=== PATIENT | male | born 1990 | race Caucasian/White ===

== ENCOUNTER 2017-10-29 20:56 | Emergency (ER) | payer MEDICARE, OTHER ==
[~2017-10-29] VITALS: Ht 157.5 cm; Wt 60.0 kg
[2017-10-29 21:20] VITALS: BP 136/69; PULSE 104; RESP 16; TEMP 98.1; O2SAT 97
--- NOTE | 2017-10-29 21:21 | PD ---
HPI Chief Complaint: BA Time Seen by Provider: 21:08 Travel History International Travel<30 days: No Contact w/Intl Traveler<30days: No Traveled to known affect area: No History of Present Illness HPI This is a 26-year-old male who presents under Maher act initially by the [employer]. According to his paperwork, "Jarrett has been a challenge and has various mental illness according to staff at his skilled nursing. Jarrett is not able to communicate with others so it is difficult to determine what he is feeling/ thinking. However and he has been acting out today and broke down his bedroom door and attempting to bite and she had a unknown reasons. Staff advised that this is abnormal for any and believe there is something affecting his mental stability and he needs to be evaluated for means of stabilization. That will be held determined that there is a substantial likelihood without care treatment of her annual cause harm to himself or others." History is limited to what is available on the [employer] act form. Symptom onset unknown. Symptoms are moderate, seem to be aggravated by his underlying mental or physical diagnosis with no obvious relieving factors. No other obvious associated signs or symptoms as the patient is unable to provide history. [facility] Social History Tobacco Use: No (Unable to obtain) Allergies-Medications (Allergen,Severity, Reaction): Coded Allergies: No Allergy Information Available (Unverified , 10/29/17) Reported Meds & Prescriptions Reported Meds & Active Scripts Active Active Prescriptions or Reported Medications Unobtainable Review of Systems ROS Limitations: Speech Impaired, Poor Historian Except as stated in HPI: all other systems reviewed are Neg Physical Exam Exam Limitations: Poor Historian Narrative GENERAL: This is a young male who is in no acute distress. He is smiling during examination. SKIN: Warm and dry. HEAD: Atraumatic. Normocephalic. EYES: Pupils equal and round. No scleral icterus. No injection or drainage. ENT: No nasal bleeding or discharge. Mucous membranes pink and moist. NECK: Trachea midline. No JVD. CARDIOVASCULAR: Regular rate and rhythm. No murmur appreciated. RESPIRATORY: No accessory muscle use. Clear to auscultation. Breath sounds equal bilaterally. GASTROINTESTINAL: Abdomen soft, non-tender, nondistended. Hepatic and splenic margins not palpable. MUSCULOSKELETAL: No obvious deformities. No clubbing. No cyanosis. No edema. NEUROLOGICAL: Awake and alert. No obvious cranial nerve deficits. Motor grossly within normal limits. Data Data Last Documented VS Vital Signs Date Time Temp Pulse Resp B/P (MAP) Pulse Ox O2 Delivery O2 Flow Rate FiO2 10/29/17 21:20 98.1 104 16 136/69 (91) 97 Orders Orders Complete Blood Count With Diff (10/29/17 21:08) Comprehensive Metabolic Panel (10/29/17 21:08) Thyroid Stimulating Hormone (10/29/17 21:08) Psych Screen (10/29/17 21:08) Drug Screen, Random Urine (10/29/17 21:08) Labs Laboratory Tests Test 10/29/17 21:50 White Blood Count 7.4 TH/MM3 Red Blood Count 4.32 MIL/MM3 Hemoglobin 13.1 GM/DL Hematocrit 39.3 % Mean Corpuscular Volume 91.2 FL Mean Corpuscular Hemoglobin 30.5 PG Mean Corpuscular Hemoglobin Concent 33.4 % Red Cell Distribution Width 13.5 % Platelet Count 123 TH/MM3 Mean Platelet Volume 8.0 FL Neutrophils (%) (Auto) 62.7 % Lymphocytes (%) (Auto) 19.0 % Monocytes (%) (Auto) 16.8 % Eosinophils (%) (Auto) 1.2 % Basophils (%) (Auto) 0.3 % Neutrophils # (Auto) 4.6 TH/MM3 Lymphocytes # (Auto) 1.4 TH/MM3 Monocytes # (Auto) 1.2 TH/MM3 Eosinophils # (Auto) 0.1 TH/MM3 Basophils # (Auto) 0.0 TH/MM3 CBC Comment DIFF FINAL Differential Comment Blood Urea Nitrogen 17 MG/DL Creatinine 0.84 MG/DL Random Glucose 105 MG/DL Total Protein 6.7 GM/DL Albumin 3.3 GM/DL Calcium Level 8.8 MG/DL Alkaline Phosphatase 65 U/L Aspartate Amino Transf (AST/SGOT) 32 U/L Alanine Aminotransferase (ALT/SGPT) 29 U/L Total Bilirubin 0.2 MG/DL Sodium Level 144 MEQ/L Potassium Level 3.4 MEQ/L Chloride Level 108 MEQ/L Carbon Dioxide Level 28.2 MEQ/L Anion Gap 8 MEQ/L Estimat Glomerular Filtration Rate 110 ML/MIN Thyroid Stimulating Hormone 3rd Gen 6.120 uIU/ML MDM Medical Decision Making Medical Screen Exam Complete: Yes Emergency Medical Condition: Yes Medical Record Reviewed: Yes Differential Diagnosis Intermittent explosive disorder, autism, developmental delay, acute psychosis, substance-induced mood disorder, schizophrenia, schizoaffective disorder Narrative Course Mental health screening discussed with the patient. Psychiatric screen ordered. Diagnosis Primary Impression: Medical clearance for psychiatric admission Scripts Unable to Obtain Active Prescriptions or Reported Meds Walker Rodriguez Oct 29, 2017 21:21
[2017-10-29 22:14] LABS: AUTOMATED NEUTROPHIL # 4.6 TH/MM3 (1.8-7.7); BASOPHIL % 0.3 % (0.0-2.0); EOSINOPHIL # 0.1 TH/MM3 (0-0.4); EOSINOPHIL % 1.2 % (0.0-4.0); HEMATOCRIT 39.3 % (39.0-51.0); HEMOGLOBIN 13.1 GM/DL (13.0-17.0); LYMPHOCYTE # 1.4 TH/MM3 (1.0-4.8); MEAN CELL VOLUME 91.2 FL (80.0-100.0); MEAN CORPUSCULAR HEMOGLOBIN 30.5 PG (27.0-34.0); MEAN CORPUSCULAR HGB CONC 33.4 % (32.0-36.0); MONO % 16.8 % (0.0-8.0); MONOCYTE # 1.2 TH/MM3 (0-0.9); NEUT % 62.7 % (16.0-70.0); PLATELET COUNT 123 TH/MM3 (150-450); RED BLOOD COUNT 4.32 MIL/MM3 (4.50-5.90); RED CELL DISTRIBUTION WIDTH 13.5 % (11.6-17.2); WHITE BLOOD COUNT 7.4 TH/MM3 (4.0-11.0)
[2017-10-29 22:34] LABS: ALBUMIN 3.3 GM/DL (3.4-5.0); AST (GOT) 32 U/L (15-37); BICARBONATE 28.2 MEQ/L (21.0-32.0); BLOOD UREA NITROGEN 17 MG/DL (7-18); CALCIUM 8.8 MG/DL (8.5-10.1); CHLORIDE 108 MEQ/L (98-107); CREATININE 0.84 MG/DL (0.60-1.30); GLOMERULAR FILTRATION RATE 110 ML/MIN (>89); GLUCOSE,RANDOM 105 MG/DL (74-106); SODIUM (NA) 144 MEQ/L (136-145)
[2017-10-29 22:44] LABS: ALKALINE PHOSPHATASE 65 U/L (45-117); ALT (GPT) 29 U/L (12-78); TOTAL BILIRUBIN ADULT 0.2 MG/DL (0.2-1.0); TOTAL PROTEIN 6.7 GM/DL (6.4-8.2)
[2017-10-30 04:04] VITALS: PULSE 82; RESP 16; O2SAT 98
[2017-10-30 15:56] VITALS: BP 132/76; PULSE 88; RESP 20; TEMP 97.6; O2SAT 99
--- NOTE | 2017-10-30 18:01 | PD ---
History of Present Illness Chief Complaint: Psychiatric Symptoms Time Seen by Provider: 17:00 Travel History International Travel<30 Days: No Contact w/Intl Traveler<30days: No Known affected area: No Legal Status Legal Status: Maher Act Maher Act Signed By: [facility] History of Present Illness: Patient is a 26-year-old male with a significant history of severe mental retardation. 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 He presents to the [facility] under Maher act by the [facility] department. Maher act states, "Jarrett is mentally challenged and has various mental illness according to staff of his fdc. Jarrett is not able to communicate with others so is difficult to determine what he is feeling or thinking. However when he has been acting out today and broke down his bedroom door and attempting to bite and punch others for unknown reasons. Staff advised this is abnormal for Jarrett and believe there is something affecting his mental stability and he needs to be evaluated for means of stabilization. Saucier Held determine there is a substantial likelihood without CARE for treatment of Jarrett will cause him to harm himself or others." Chart reviewed and discussed with nurse. Patient is in room J107 of the emergency department. Patient is in [facility]. Patient is alert to self. Patient is mute and will gesture when he needs something. Fund of knowledge is poor. Motor and gait is normal. Patient has poor dentition. She has been cooperative in the emergency department and easily redirected. Patient had a large bowel movement in the Emergency Department and appears to be more comfortable. Collateral: I have made several attempts to call the fdc/ caregiver listed on the Maher Act. Cayetano Soto, with no response . Patient is mentally challenged and does not meet Maher Act criteria. Patient has been cooperative and easily redirected . Will lift Maher Act. Arrangements will be made to return patient back to his fdc. Dx: Intellectual Disability; Intermittent Explosive Disorder PFSH Past Medical History Narrative Medical Patient lives in a fdc and is followed by medical and psychiatric staff affiliated by the fdc. Medical History: Unable to Obtain Hx Anticoagulant Therapy: No Cardiovascular Problems: No Chemotherapy: No Cerebrovascular Accident: No Diabetes: No Medical other: Yes (mentally challenged) Respiratory: No Tetanus Vaccination: Unknown Influenza Vaccination: No (unknown) Past Surgical History Surgical History: Unable to Obtain Psychiatric History Psychiatric History Hx Psychiatric Treatment: PATIENT HAS SEVERE INTELLECTUAL DISABILITY. HE WAS BORN WITH CONGENITAL CROUZON SYNDROME. HE HAS A HISTORY OF OUTPATIENT TREATMENT AT [facility] History of Inpatient Treatment: No Social History Hx Alcohol Use: No Hx Tobacco Use: No Hx Substance Use: No Allergies-Medications (Allergen,Severity, Reaction): Coded Allergies: No Allergy Information Available (Unverified , 10/29/17) Reported Meds & Prescriptions Reported Meds & Active Scripts Active Active Prescriptions or Reported Medications Unobtainable Mental Status Examination Appearance: Dirty Consciousness: Alert Orientation: Person Motor Activity: Normal gait Speech: Other (mute) Language: Other (mute) Fund of Knowledge: Poor Attention and Concentration: Easily Distracted Memory: Impaired Mood: Other (cooperative ) Affect: Appropriate Thought Process & Associations: Other (intellectual disability ) Thought Content: Other (intellectual disability) Hallucination Type: None Delusion Type: None Suicidal Ideation: No Suicidal Plan: No Suicidal Intention: No Homicidal Ideation: No Homicidal Plan: No Homicidal Intention: No Insight: Adequate Judgment: Adequate MDM Medical Decision Making Medical Record Reviewed: Yes Assessment/Plan Patient is a 26-year-old male with intellectual disability. He was sent to the emergency room from his fdc due to his behavior in the fdc. She has been observed in the emergency room and has been cooperative and easily redirected. During his stay he had a large bowel movement which has improved his behavior. Patient does not meet Maher act criteria or admission criteria. He is at low risk for decompensation. Attempts have been made to call the fdc to discuss this patient with no response from the fdc. Patient will be discharged and return back to the fdc. prison will be advised that they may follow-up with her current medical and psychiatric staff that covers their facility. Maher acted lifted patient will be returned to his fdc. Orders Orders Complete Blood Count With Diff (10/29/17 21:08) Comprehensive Metabolic Panel (10/29/17 21:08) Thyroid Stimulating Hormone (10/29/17 21:08) Psych Screen (10/29/17 21:08) Drug Screen, Random Urine (10/29/17 21:08) Diet Regular Basic (10/30/17 Breakfast) Diet Regular Basic (10/30/17 Lunch) Diet Regular Basic (10/30/17 Dinner) Results Vital Signs Date Time Temp Pulse Resp B/P (MAP) Pulse Ox O2 Delivery O2 Flow Rate FiO2 10/30/17 15:56 97.6 88 20 132/76 (94) 99 10/30/17 04:04 82 16 98 Room Air 10/29/17 21:20 98.1 104 16 136/69 (91) 97 Laboratory Tests Test 10/29/17 21:50 White Blood Count 7.4 Red Blood Count 4.32 Hemoglobin 13.1 Hematocrit 39.3 Mean Corpuscular Volume 91.2 Mean Corpuscular Hemoglobin 30.5 Mean Corpuscular Hemoglobin Concent 33.4 Red Cell Distribution Width 13.5 Platelet Count 123 Mean Platelet Volume 8.0 Neutrophils (%) (Auto) 62.7 Lymphocytes (%) (Auto) 19.0 Monocytes (%) (Auto) 16.8 Eosinophils (%) (Auto) 1.2 Basophils (%) (Auto) 0.3 Neutrophils # (Auto) 4.6 Lymphocytes # (Auto) 1.4 Monocytes # (Auto) 1.2 Eosinophils # (Auto) 0.1 Basophils # (Auto) 0.0 CBC Comment DIFF FINAL Differential Comment Blood Urea Nitrogen 17 Creatinine 0.84 Random Glucose 105 Total Protein 6.7 Albumin 3.3 Calcium Level 8.8 Alkaline Phosphatase 65 Aspartate Amino Transf (AST/SGOT) 32 Alanine Aminotransferase (ALT/SGPT) 29 Total Bilirubin 0.2 Sodium Level 144 Potassium Level 3.4 Chloride Level 108 Carbon Dioxide Level 28.2 Anion Gap 8 Estimat Glomerular Filtration Rate 110 Thyroid Stimulating Hormone 3rd Gen 6.120 Diagnosis Primary Impression: Intellectual disability Additional Impression: Intermittent explosive disorder Prescriptions Unable to Obtain Active Prescriptions or Reported Meds Disposition: 01 DISCHARGE HOME Condition: Stable Problem Qualifiers Yusra Butler Oct 30, 2017 18:01
--- NOTE | 2017-10-30 19:03 | PD ---
Physical Exam Time Seen by Provider: 19:01 Narrative RODERICK Benitez has evaluated patient, lifted Maher act and cleared the patient for discharge. Data Data Last Documented VS Vital Signs Date Time Temp Pulse Resp B/P (MAP) Pulse Ox O2 Delivery O2 Flow Rate FiO2 10/30/17 15:56 97.6 88 20 132/76 (94) 99 10/30/17 04:04 Room Air Orders Orders Complete Blood Count With Diff (10/29/17 21:08) Comprehensive Metabolic Panel (10/29/17 21:08) Thyroid Stimulating Hormone (10/29/17 21:08) Psych Screen (10/29/17 21:08) Drug Screen, Random Urine (10/29/17 21:08) Diet Regular Basic (10/30/17 Breakfast) Diet Regular Basic (10/30/17 Lunch) Diet Regular Basic (10/30/17 Dinner) Labs Laboratory Tests Test 10/29/17 21:50 White Blood Count 7.4 TH/MM3 Red Blood Count 4.32 MIL/MM3 Hemoglobin 13.1 GM/DL Hematocrit 39.3 % Mean Corpuscular Volume 91.2 FL Mean Corpuscular Hemoglobin 30.5 PG Mean Corpuscular Hemoglobin Concent 33.4 % Red Cell Distribution Width 13.5 % Platelet Count 123 TH/MM3 Mean Platelet Volume 8.0 FL Neutrophils (%) (Auto) 62.7 % Lymphocytes (%) (Auto) 19.0 % Monocytes (%) (Auto) 16.8 % Eosinophils (%) (Auto) 1.2 % Basophils (%) (Auto) 0.3 % Neutrophils # (Auto) 4.6 TH/MM3 Lymphocytes # (Auto) 1.4 TH/MM3 Monocytes # (Auto) 1.2 TH/MM3 Eosinophils # (Auto) 0.1 TH/MM3 Basophils # (Auto) 0.0 TH/MM3 CBC Comment DIFF FINAL Differential Comment Blood Urea Nitrogen 17 MG/DL Creatinine 0.84 MG/DL Random Glucose 105 MG/DL Total Protein 6.7 GM/DL Albumin 3.3 GM/DL Calcium Level 8.8 MG/DL Alkaline Phosphatase 65 U/L Aspartate Amino Transf (AST/SGOT) 32 U/L Alanine Aminotransferase (ALT/SGPT) 29 U/L Total Bilirubin 0.2 MG/DL Sodium Level 144 MEQ/L Potassium Level 3.4 MEQ/L Chloride Level 108 MEQ/L Carbon Dioxide Level 28.2 MEQ/L Anion Gap 8 MEQ/L Estimat Glomerular Filtration Rate 110 ML/MIN Thyroid Stimulating Hormone 3rd Gen 6.120 uIU/ML MDM Supervised Visit with KATHLEEN: No Narrative Course RODERICK Benitez has evaluated patient, lifted Gunnar vilchis and cleared the patient for discharge. Patient contracts safety. Denies suicidal or homicidal ideations. Patient will be provided community resource packet to [facility] for follow-up. Has friends and family for support. Patient was medically cleared by alternate provider prior to psych screening. Patient has been evaluated by psychiatry and and is now cleared for discharge. Diagnosis Primary Impression: Intellectual disability Additional Impression: Intermittent explosive disorder Referrals: [facility] (Out patient) [facility] Primary Care Physician Psychiatrist Guillermo [facility] Patient Instructions: General Instructions, Mood Disorders (ED) Departure Forms: Tests/Procedures Additional Instruction: PT TO FOLLOW UP WITH PCP AND PSYCHIATRIST CONTINUE MEDICATIONS PRESCRIBED Contract safety to your self and others Follow-up with psychiatry Follow-up with primary care provider Follow-up with [facility] Return to the emergency department immediately with worsening of symptoms Med/Other Pt SpecificInfo: No Change to Meds, No Meds Exist/No RX given Scripts Unable to Obtain Active Prescriptions or Reported Meds Disposition: 01 DISCHARGE HOME Condition: Stable Enma Marsh Oct 30, 2017 19:03
== END 2017-10-30 19:25 | disposition home or self-care (01) ==
LOC: NEDAMB 20:56 → NEPJ 10-30 19:25
DX: F72 Severe intellectual disabilities (principal); Q75.1 Craniofacial dysostosis; F63.81 Intermittent explosive disorder; F39 Unspecified mood [affective] disorder
CPT/HCPCS: 80053; 84443; 85025; 99283

== ENCOUNTER 2018-01-24 22:20 | Observation (INO) ==
[2018-01-24] MEDS ORDERED: Sod Chloride 0.9% Inj 1,000 ML IV.SIG ONE (22:50)
[2018-01-24 23:18] LABS: Baso # (Auto) 0.1 th/mm3 (0.0-0.2); Baso % (Auto) 1.1 % (0.0-2.0); Eos # (Auto) 0.3 th/mm3 (0.0-0.4); Eos % (Auto) 5.3 % (0.0-4.0); Hematocrit 30.9 % (39.0-51.0); Hemoglobin 10.4 gm/dL (13.0-17.0); Lymph # (Auto) 1.7 th/mm3 (1.0-4.8); Lymph % (Auto) 27.8 % (9.0-44.0); Mean Corpuscular HGB Conc 33.6 % (32.0-36.0); Mean Corpuscular Hemoglobin 31.1 pg (27.0-34.0); Mean Corpuscular Volume 92.4 fL (80.0-100.0); Mean Platelet Volume 6.5 fL (7.0-11.0); Mono # (Auto) 0.7 th/mm3 (0.0-0.9); Mono % (Auto) 11.1 % (0.0-8.0); Neut # (Auto) 3.4 th/mm3 (1.8-7.7); Neut % (Auto) 54.7 % (16.0-70.0); Platelet Count 305 th/mm3 (150-450); Red Blood Count 3.35 mil/mm3 (4.50-5.90); Red Cell Distribution Width 15.9 % (11.6-17.2); White Blood Count 6.1 th/mm3 (4.0-11.0)
--- NOTE | 2018-01-24 23:20 | ED ---
HPI General Chief complaint: Medical Clearance Stated complaint: [facility] [facility] Time Seen by Provider: 01/24/18 22:34 Source: EMS, RN notes reviewed and old records reviewed (notes sent from [facility]) Mode of arrival: EMS Limitations: other (non-verbal) History of Present Illness HPI narrative: 27yM sent in from [facility] for abnormal imaging. The patient has a history of epilepsy, aphasia, and is apparently non-verbal at baseline. He had a KUB performed which was read as "Positive KUB: Colonic dilatation consistent with ileus", indication listed as "PEG tube was missing". I am unable to elicit any further details of HPI from the patient and there are no caregivers here with him. Related Data Home Medications Medication Instructions Recorded Confirmed bisacodyl 10 mg NH DAILY PRN 01/25/18 01/25/18 divalproex 125 mg PO BID 01/25/18 01/25/18 levothyroxine 50 mcg PO DAILY 01/25/18 01/25/18 Allergies Allergy/AdvReac Type Severity Reaction Status Date / Time No Known Allergies Allergy Verified 01/25/18 03:02 Review of Systems ROS Unobtainable ROS Unobtainable: unobtainable due to mental condition PMFSH History History Provided By: Medical Record Medical History Medical History Dysphagia (Acute) Hypothyroidism (Acute) T2DM (type 2 diabetes mellitus) (Acute) Aphasia (Acute) Epilepsy (Acute) Surgical History Surgical History S/P percutaneous endoscopic gastrostomy (PEG) tube placement (Acute) Social History Social History Substance History: No History of Abuse Smoking Status: Never smoker How Often Do You Have a Drink Containing Alcohol: Never [facility] within [facility] Last 8 Weeks: No Recent Out of Country Travel within the Last 8 Weeks: No Exam Narrative Exam Narrative: Well-nourished, no acute distress NCAT, PERRL Regular rate and rhythm Lungs clear to auscultation bilaterally PEG site has no tube present, abdomen soft and non-tender throughout, mild distension Awake, non-verbal, unable to assess orientation, does not follow commands Procedures Feeding Tube Replacement Type of Tube: gastrostomy Insertion Site Prior to Procedure: clean Tube Used for Reinsertion: Daomn [place] Tube Size: 16 Balloon size (mL): 10 Verification of Placement: auscultation Tube Secured by: tape/dressing Patient Tolerated Procedure: well and no complications Additional Comments: There are no records available stating when the patient had a PEG placed or what size he had. I placed a Damon catheter under sterile conditions without difficulty in order to keep the tract open; drainage of gastric contents was noted following insertion. The Damon was Stat-locked to his abdomen and an abdominal binder was placed over the site to prevent the patient from pulling the tube out. Course Initial Documented Vital Signs Pulse Rate 109 H 01/24/18 22:32 Respiratory Rate 17 01/24/18 22:32 Blood Pressure 134/92 H 01/24/18 22:32 Pulse Oximetry 98 01/24/18 22:32 Last Documented Vital Signs Pulse Rate 109 H 01/24/18 22:32 Respiratory Rate 17 01/24/18 22:32 Blood Pressure 134/92 H 01/24/18 22:32 Pulse Oximetry 98 01/24/18 22:32 Medical Decision Making [facility] Narrative Medical decision making narrative: Assessment: 27yM presenting with PEG dislodgement and colonic ileus Plan: Damon placed in PEG tract, see procedure note Labs CT abd/ pelvis with oral and IV contrast-- will give small amount of PO contrast through Damon to make sure it is in appropriate position Addendum: Unable to get replacement PEG tube from central supply overnight, patient will require replacement in AM. CT scan shows colonic ileus, no electrolyte abnormalities, no leukocytosis. This patient will need GI consult, IV fluids, and observation for resolution of ileus. Case discussed with Dr. Singh of [facility]. Medical Screen Exam Complete: Yes Emergency Medical Condition: Yes Differential Diagnosis Differential Diagnosis: Differential diagnosis includes, but is not limited to: ileus, obstruction, volvulus, electrolyte abnormality, dehydration Lab Data Lab results reviewed: Yes I reviewed the patient's lab results. Result diagrams: 01/24/18 23:00 01/24/18 23:00 Lab Results 01/24/18 01/24/18 01/24/18 Range/Units 23:00 23:00 23:00 WBC 6.1 (4.0-11.0) th/mm3 RBC 3.35 L (4.50-5.90) mil/mm3 Hgb 10.4 L (13.0-17.0) gm/dL Hct 30.9 L (39.0-51.0) % MCV 92.4 (80.0-100.0) fL MCH 31.1 (27.0-34.0) pg MCHC 33.6 (32.0-36.0) % RDW 15.9 (11.6-17.2) % Plt Count 305 D (150-450) th/mm3 MPV 6.5 L (7.0-11.0) fL Neut % (Auto) 54.7 (16.0-70.0) % Lymph % (Auto) 27.8 (9.0-44.0) % [place] % (Auto) 11.1 H (0.0-8.0) % Eos % (Auto) 5.3 H (0.0-4.0) % Baso % (Auto) 1.1 (0.0-2.0) % Neut # (Auto) 3.4 (1.8-7.7) th/mm3 Lymph # (Auto) 1.7 (1.0-4.8) th/mm3 [place] # (Auto) 0.7 (0.0-0.9) th/mm3 Eos # (Auto) 0.3 (0.0-0.4) th/mm3 Baso # (Auto) 0.1 (0.0-0.2) th/mm3 WBC Differential . Differential Comment Auto diff final PT 11.0 (9.8-11.6) sec INR 1.1 Ratio Sodium 142 (136-145) meq/L Potassium 4.8 (3.5-5.1) meq/L Chloride 101 (98-107) meq/L Carbon Dioxide 29.6 (21.0-32.0) meq/L Anion Gap 11 (5-15) meq/L BUN 10 (7-18) mg/dL Creatinine 0.76 (0.60-1.30) mg/dL Estimated GFR Greater than 89 (>89) mL/min Random Glucose 85 (74-106) mg/dL Calcium 8.6 (8.5-10.1) mg/dL Magnesium 2.2 (1.5-2.5) mg/dL Total Bilirubin 0.2 (0.2-1.0) mg/dL AST 49 H (15-37) U/L ALT 178 H (12-78) U/L Alkaline Phosphatase 159 H (45-117) U/L Total Protein 7.1 (6.4-8.2) g/dL Albumin 3.2 L (3.4-5.0) g/dL Lipase 311 (73-393) U/L Imaging Data Radiologist's impression: Abdomen/Pelvis CT 01/25/18 00:02 CONCLUSION: 1. No acute findings. Moderate constipation with probable colonic ileus.. Gastrostomy tube present. Multiple bilateral renal cysts. Portal Discharge Plan Discharge Disposition Patient Disposition: 30 Still Patient Discharge Condition Condition: Good Discharge Details Diagnosis: Ileus, PEG (percutaneous endoscopic gastrostomy) adjustment/replacement/removal Physicians Team ED Provider: Gisella Sharp Primary Care Provider: UNKNOWN, Rxs /Orders / Referrals /Forms Prescriptions: No Action levothyroxine 50 mcg Tablet 50 mcg PO DAILY RF: 0 bisacodyl 10 mg Suppository 10 mg NH DAILY PRN (Reason: Constipation) RF: 0 divalproex 125 mg Capsule, Delayed Rel Sprinkle 125 mg PO BID RF: 0 Status ED Status: With Doctor
[2018-01-24 23:23] LABS: INR 1.1 Ratio
[2018-01-24] MEDS ORDERED: Diatrizoate Meglum/Diatrizoate Sod Liq 9 ML UDC ONE (23:32)
[2018-01-24] MEDS ORDERED: Diatrizoate Meglum/Diatrizoate Sod Liq 9 ML UDC PO ONE (23:58)
[2018-01-25 00:08] LABS: Alanine Aminotransferase 178 U/L (12-78); Albumin 3.2 g/dL (3.4-5.0); Anion Gap 11 meq/L (5-15); Aspartate Aminotransferase 49 U/L (15-37); Blood Urea Nitrogen 10 mg/dL (7-18); Calcium 8.6 mg/dL (8.5-10.1); Carbon Dioxide 29.6 meq/L (21.0-32.0); Chloride 101 meq/L (98-107); Glomerular Filtration Rate Greater Than 89 mL/min (>89); Glucose,Random 85 mg/dL (74-106); Lipase 311 U/L (73-393); Magnesium 2.2 mg/dL (1.5-2.5); Potassium 4.8 meq/L (3.5-5.1); Sodium 142 meq/L (136-145)
[2018-01-25 00:10] LABS: Alkaline Phosphatase 159 U/L (45-117); Total Protein 7.1 g/dL (6.4-8.2)
--- NOTE | 2018-01-25 03:18 | CT ---
EXAM DATE: 01/25/2018 3:05 AM EDT AGE/SEX: 27 years / Male INDICATIONS: Abdominal pain, obstruction. CLINICAL DATA: This is the patient's initial encounter. Patient reports that signs and symptoms have been present for 1 day and indicates a pain score of 3/10. MEDICAL/SURGICAL HISTORY: None. . PEG-tube. ORAL CONTRAST: Prescribed oral contrast ingested. RADIATION DOSE: 6.64 CTDI (mGy) COMPARISON: No prior exams available for comparison. TECHNIQUE: Multiple contiguous axial images were obtained through the abdomen and pelvis following b olus infusion of 60 ml Omnipaque 350 (iohexol) nonionic water-soluble contrast as a single exam dos e. Prescribed oral contrast ingested. Using automated exposure control and adjustment of the mA and/ or kV according to patient size, radiation dose was kept as low as reasonably achievable to obtain op timal diagnostic quality images. DICOM format image data is available electronically for review and comparison. FINDINGS: Lung bases are clear. No acute findings in the liver, spleen, adrenals or pancreas. Gastrostomy tube is present. Multiple bilateral renal cysts. No prior studies available for comparison. There is moderate constipation and colonic ileus. No bowel obstruction identified. No free air or significant free fluid. CONCLUSION: 1. No acute findings. Moderate constipation with probable colonic ileus.. Gastrostomy tube present. Multiple bilateral renal cysts. Portal Electronically signed by: Al Armstrong MD 01/25/2018 3:17 AM EDT
[2018-01-25] MEDS: Sod Chloride 0.9% Inj 1,000 ML IV.CONT SCH ×2 (04:46→15:28)
--- NOTE | 2018-01-25 10:20 | P.HP ---
History of Present Illness Primary Care Physician: UNKNOWN History of Present Illness: 27-year-old white male was admitted for a dislodged PEG tube. History is limited as the patient is largely nonverbal, history is obtained from account supervisor at patient's residential facility as well as floor nurses here. Patient was in his usual state of health until at some point yesterday at his residential facility who was noticed to have no visualize element of his G-tube by nursing. He had a plain film done the results of which reportedly read that the tube or part of the tube was in place still. Thus the patient was sent to the emergency department for further evaluation. Patient's outside residential sales professional says that he has been tolerating p.o. intake well with no reports of any acute abdominal pain nausea vomiting the past few days during this timeframe. I spoke with the patient's hydrological technical officer at the residential facility over the phone who knows him very well and says that he has been doing really well with by mouth intake and only needs bolus feedings now only once a day at most. Says that he is doing really well with fluid intake as well. Says that he is on a mechanical soft diet with honey thickened liquids and is actively getting speech therapy there. In the emergency department patient had CT scan done which did show part of the gastrostomy tube still being present in the abdomen. Nursing reports that the patient had ripped out some part of his tube while he was on the floor. Otherwise there have been no reports of any nausea vomiting or abdominal pain. Patient's outside residential sales professional says that he has no responsible republican/ healthcare surrogate/guardian. They stated that there in pursuit of guardianship. Family history is unable to be obtained as the patient is overall nonverbal. Social history entails that he now lives at a residential facility at [place]. Patient's outside residential sales professional says that he had his PEG tube/G-tube placed while he is at [facility] earlier this summer. Review of Systems All other systems reviewed negative except as stated in HPI PMFSH - History History Provided By: Medical Record - Medical History Medical History: Medical History (Last Reviewed 01/25/18 @ 11:19 by Ben Puckett MD) Dysphagia (Acute) Hypothyroidism (Acute) T2DM (type 2 diabetes mellitus) (Acute) Aphasia (Acute) Epilepsy (Acute) - Surgical History Surgical History: Surgical History (Last Reviewed 01/25/18 @ 11:19 by Ben Puckett MD) S/P percutaneous endoscopic gastrostomy (PEG) tube placement (Acute) - Social History I have reviewed the patient's Social History: Yes - Tobacco History Smoking Status: Never smoker - Alcohol History How Often Do You Have a Drink Containing Alcohol: Never - Substance Use History Substance History: No History of Abuse - Travel History Recent Travel in the [place] Within the Last 8 Weeks: No Recent Travel Out of the Country Within the Last 8 Weeks: No - Immunization History Tetanus Immunization: <5 Years Hx Influenza Vaccine This Season: Yes Medications and Allergies Active Medications: Active Medications Sodium Chloride (Ns Inj) 1,000 mls @ 100 mls/hr IV.CONT .Q10H MEDARDO Last Admin: 01/25/18 04:46 Dose: 100 mls/hr Ondansetron HCl (Zofran Inj) 4 mg IV.PUSH Q6H PRN PRN Reason: NAUSEA OR VOMITING Allergies Allergy/AdvReac Type Severity Reaction Status Date / Time No Known Allergies Allergy Verified 01/25/18 03:02 Home Medications Medication Instructions Recorded Confirmed Type bisacodyl 10 mg DE DAILY PRN 01/25/18 01/25/18 History divalproex 125 mg PO BID 01/25/18 01/25/18 History levothyroxine 50 mcg PO DAILY 01/25/18 01/25/18 History Exam Vital signs: Vital Signs 01/24/18 22:32 01/25/18 04:40 01/25/18 07:54 Pulse Rate 109 H 86 99 H Respiratory Rate 17 17 16 Blood Pressure 134/92 H 123/74 85/52 L Pulse Oximetry 98 98 Intake & Output 01/24/18 01/25/18 01/25/18 18:59 06:59 18:59 Intake Total 1000 / 1000 Balance 1000 / 1000 Intake: IV 1000 / 1000 NS Inj 1,000 ML @ Wide Open IV. 1000 / 1000 SIG BOLUS ONE Rx#:[id number] Narrative: VS: afebrile GENERAL: Lying in bed, awake, alert, pleasant mood SKIN: Warm and dry. EYES: No scleral icterus. No injection or drainage. ENT: No nasal bleeding or discharge. CARDIOVASCULAR: Regular rate and rhythm. no murmurs RESPIRATORY: No accessory muscle use. Clear to auscultation. Breath sounds equal bilaterally. GASTROINTESTINAL: Abdomen soft, non-tender, nondistended. Granulation tissue protruding from what appears to have been the patient's most recent PEG tube site. Extremities: No clubbing, cyanosis, or edema. No obvious deformities. MUSCULOSKELETAL: adequate muscle bulk and tone for age and habitus NEUROLOGICAL: Awake and alert. No obvious cranial nerve deficits. No facial droop nor slurred speech noted. PSYCHIATRIC: Unable to assess insight due to chronic mental impairment/TBI. Results - Labs CBC & Chem 7: 01/24/18 23:00 01/24/18 23:00 Labs: Laboratory Results - last 24 hr 01/24/18 01/24/18 01/24/18 23:00 23:00 23:00 WBC 6.1 RBC 3.35 L Hgb 10.4 L Hct 30.9 L MCV 92.4 MCH 31.1 MCHC 33.6 RDW 15.9 Plt Count 305 D MPV 6.5 L Neut % (Auto) 54.7 Lymph % (Auto) 27.8 [place] % (Auto) 11.1 H Eos % (Auto) 5.3 H Baso % (Auto) 1.1 Neut # (Auto) 3.4 Lymph # (Auto) 1.7 [place] # (Auto) 0.7 Eos # (Auto) 0.3 Baso # (Auto) 0.1 WBC Differential . Differential Comment Auto diff final PT 11.0 INR 1.1 Sodium 142 Potassium 4.8 Chloride 101 Carbon Dioxide 29.6 Anion Gap 11 BUN 10 Creatinine 0.76 Estimated GFR Greater than 89 Random Glucose 85 Calcium 8.6 Magnesium 2.2 Total Bilirubin 0.2 AST 49 H ALT 178 H Alkaline Phosphatase 159 H Total Protein 7.1 Albumin 3.2 L Lipase 311 - Imaging Impressions Abdomen/Pelvis CT 01/25/18 00:02 CONCLUSION: 1. No acute findings. Moderate constipation with probable colonic ileus.. Gastrostomy tube present. Multiple bilateral renal cysts. Portal Caprini VTE Risk Assessment Caprini VTE Risk Assessment: No/Low Risk (score <= 1) Caprini Risk Assessment Model: Point Value = 1 Point Value = 2 Point Value = 3 Point Value = 5 Age 41-60 Minor surgery BMI > 25 kg/m2 Swollen legs Varicose veins or History of unexplained or recurrent spontaneous Oral contraceptives or hormone replacement Sepsis (< 1 month) Serious lung disease, including pneumonia (< 1 month) Abnormal pulmonary function Acute myocardial infarction Congestive heart failure (< 1 month) History of inflammatory bowel disease Medical patient at bed rest Age 61-74 Arthroscopic surgery Major open surgery (> 45 min) Laparoscopic surgery (> 45 min) Malignancy Confined to bed (> 72 hours) Immobilizing plaster cast Central venous access Age >= 75 History of VTE Family history of VTE Factor V Leiden Prothrombin [id number] Lupus anticoagulant Anticardiolipin antibodies Elevated serum homocysteine Heparin-induced thrombocytopenia Other congenital or acquired thrombophilia Stroke (< 1 month) Elective arthroplasty Hip, pelvis, or leg fracture Acute spinal cord injury (< 1 month) Prophylaxis Regimen: Total Risk Factor Score Risk Level Prophylaxis Regimen 0-1 Low Early ambulation 2 Moderate Order ONE of the following: *Sequential Compression Device (SCD) *Heparin 5000 units SQ BID 3-4 Higher Order ONE of the following medications: *Heparin 5000 units SQ TID *Enoxaparin/Lovenox 40 mg SQ daily (WT < 150 kg, CrCl > 30 mL/min) *Enoxaparin/Lovenox 30 mg SQ daily (WT < 150 kg, CrCl > 10-29 mL/min) *Enoxaparin/Lovenox 30 mg SQ BID (WT < 150 kg, CrCl > 30 mL/min) AND/OR *Sequential Compression Device (SCD) 5 or more Highest Order ONE of the following medications: *Heparin 5000 units SQ TID (Preferred with Epidurals) *Enoxaparin/Lovenox 40 mg SQ daily (WT < 150 kg, CrCl > 30 mL/min) *Enoxaparin/Lovenox 30 mg SQ daily (WT < 150 kg, CrCl > 10-29 mL/min) *Enoxaparin/Lovenox 30 mg SQ BID (WT < 150 kg, CrCl > 30 mL/min) AND *Sequential Compression Device (SCD) Assessment and Plan - Plan 27-year-old white male was admitted for dislodged PEG tube Dislodged PEG tube -CT scan originally showed G-tube remnants were still in place. Clinically now however after nursing witnessed the patient being out further elements of the G- tube it appears that clinically he no longer has any element of the G-tube present. Discussed case with GI, recommended holding off on repeat scanning the patient in seeing if he tolerates p.o. intake well with no further acute GI symptoms. I have ordered for a dietitian consultation and for nursing to monitor his p.o. intake. After discussing case thoroughly with patient's dietary tach who works with the patient's dietitian at the residential facility , they are inclined to not proceed with PEG tube replacement due to impressive intake at the residential facility. The patient does not have an official healthcare surrogate at this time making obtaining consent very difficult for invasive procedures. Nonetheless even from medical standpoint if the patient does clinically well today which I think he will from a p.o. intake perspective , he can be discharged back to the residential facility with out getting a new PEG tube at this time. Lfts improving. Patient tolerated p.o. intake well. Will be discharged.
--- NOTE | 2018-01-25 10:25 | P.CONGI ---
History of Present Illness Consult date: 01/25/18 Consult reason: Dislodged PEG Chief complaint: Colonic Ileus, PEG Dislodgement History of Present Illness: This is a 27 yo M who was sent from [facility] for evaluation of dislodged PEG tube. Pt is aphasic at baseline and unable to provide any history , therefore history has been obtained through chart review. According to records a Damon catheter was placed in the tract of the previous PEG site. At the time of my exam, pt was seen resting in bed and the Damon catheter was lying next to him in the bed, no longer through the abdominal tract. Pt in no apparent distress. CT was done in the ER which revealed moderate constipation with probably colonic ileus and at that time G-tube was present. Unsure who placed original PEG tube or when this was placed. <Courtney Hong - Last Filed: 01/25/18 09:59> Review of Systems other (Unable to obtain due to aphasia) <Courtney Hong - Last Filed: 01/25/18 09:59> PMFSH - History History Provided By: Medical Record - Medical History Medical History: Medical History (Last Updated 01/25/18 @ 00:25 by Billie Gray RN) Dysphagia (Acute) Hypothyroidism (Acute) T2DM (type 2 diabetes mellitus) (Acute) Aphasia (Acute) Epilepsy (Acute) - Surgical History Surgical History: Surgical History (Last Updated 01/25/18 @ 00:25 by Billie Gray RN) S/P percutaneous endoscopic gastrostomy (PEG) tube placement (Acute) - Tobacco History Smoking Status: Never smoker - Alcohol History How Often Do You Have a Drink Containing Alcohol: Never - Substance Use History Substance History: No History of Abuse - Travel History Recent Travel in the [place] Within the Last 8 Weeks: No Recent Travel Out of the Country Within the Last 8 Weeks: No - Immunization History Tetanus Immunization: <5 Years Hx Influenza Vaccine This Season: Yes <Courtney Hong - Last Filed: 01/25/18 09:59> - Medical History Medical History: Medical History (Last Updated 01/25/18 @ 00:25 by Billie Gray RN) Dysphagia (Acute) Hypothyroidism (Acute) T2DM (type 2 diabetes mellitus) (Acute) Aphasia (Acute) Epilepsy (Acute) - Surgical History Surgical History: Surgical History (Last Updated 01/25/18 @ 00:25 by Billie Gray RN) S/P percutaneous endoscopic gastrostomy (PEG) tube placement (Acute) <Freddy Barrera - Last Filed: 01/26/18 10:37> Medications and Allergies Active Medications: Active Medications Sodium Chloride (Ns Inj) 1,000 mls @ 100 mls/hr IV.CONT .Q10H MEDARDO Last Admin: 01/25/18 04:46 Dose: 100 mls/hr Ondansetron HCl (Zofran Inj) 4 mg IV.PUSH Q6H PRN PRN Reason: NAUSEA OR VOMITING <Courtney Hong - Last Filed: 01/25/18 09:59> <Freddy Barrera - Last Filed: 01/26/18 10:37> Allergies Allergy/AdvReac Type Severity Reaction Status Date / Time No Known Allergies Allergy Verified 01/25/18 03:02 Home Medications Medication Instructions Recorded Confirmed Type bisacodyl 10 mg HI DAILY PRN 01/25/18 01/25/18 History divalproex 125 mg PO BID 01/25/18 01/25/18 History levothyroxine 50 mcg PO DAILY 01/25/18 01/25/18 History Exam Vital signs: Vital Signs 01/24/18 22:32 01/25/18 04:40 01/25/18 07:54 Pulse Rate 109 H 86 99 H Respiratory Rate 17 17 16 Blood Pressure 134/92 H 123/74 85/52 L Pulse Oximetry 98 98 Intake & Output 01/24/18 01/25/18 01/25/18 18:59 06:59 18:59 Intake Total 1000 / 1000 Balance 1000 / 1000 Intake: IV 1000 / 1000 NS Inj 1,000 ML @ Wide Open IV. 1000 / 1000 SIG BOLUS ONE Rx#:[id number] - Constitutional no acute distress - Routine Respiratory Exam Absent: accessory muscle use - Routine Cardiovascular Exam Present: RRR - Routine Abdominal Exam Present: soft, normoactive bowel sounds. Absent: tenderness, distended Comments: Previous PEG tract is clean and dry - Routine Skin Exam Present: dry, warm - Routine Neurological Exam Awake <Courtney Hong - Last Filed: 01/25/18 09:59> Vital signs: Vital Signs 01/25/18 12:00 01/25/18 15:48 Temperature 98.7 F 98.9 F Pulse Rate 100 H 107 H Respiratory Rate 18 18 Blood Pressure 110/73 109/55 L Pulse Oximetry 98 97 Intake & Output 01/25/18 01/26/18 01/26/18 18:59 06:59 18:59 Intake Total 1000 / 1000 Balance 1000 / 1000 Intake: IV 1000 / 1000 NS Inj 1,000 ML @ 100 mls/hr IV 1000 / 1000 .CONT .Q10H MEDARDO Rx#:[id number] Other: # Voids 2 # Bowel Movements 2 <Freddy Barrera - Last Filed: 01/26/18 10:37> Results - Labs CBC & Chem 7: 01/24/18 23:00 01/24/18 23:00 Labs: Laboratory Results - last 24 hr 01/24/18 01/24/18 01/24/18 23:00 23:00 23:00 WBC 6.1 RBC 3.35 L Hgb 10.4 L Hct 30.9 L MCV 92.4 MCH 31.1 MCHC 33.6 RDW 15.9 Plt Count 305 D MPV 6.5 L Neut % (Auto) 54.7 Lymph % (Auto) 27.8 [place] % (Auto) 11.1 H Eos % (Auto) 5.3 H Baso % (Auto) 1.1 Neut # (Auto) 3.4 Lymph # (Auto) 1.7 [place] # (Auto) 0.7 Eos # (Auto) 0.3 Baso # (Auto) 0.1 WBC Differential . Differential Comment Auto diff final PT 11.0 INR 1.1 Sodium 142 Potassium 4.8 Chloride 101 Carbon Dioxide 29.6 Anion Gap 11 BUN 10 Creatinine 0.76 Estimated GFR Greater than 89 Random Glucose 85 Calcium 8.6 Magnesium 2.2 Total Bilirubin 0.2 AST 49 H ALT 178 H Alkaline Phosphatase 159 H Total Protein 7.1 Albumin 3.2 L Lipase 311 - Imaging Impressions Abdomen/Pelvis CT 01/25/18 00:02 CONCLUSION: 1. No acute findings. Moderate constipation with probable colonic ileus.. Gastrostomy tube present. Multiple bilateral renal cysts. Portal <Courtney Hong - Last Filed: 01/25/18 09:59> - Labs CBC & Chem 7: 01/24/18 23:00 01/24/18 23:00 Labs: Laboratory Results - last 24 hr 01/25/18 01/25/18 13:45 13:45 Total Bilirubin 0.2 Direct Bilirubin 0.1 Indirect Bilirubin 0.1 AST 32 ALT 135 H Alkaline Phosphatase 157 H Total Protein 6.5 D Albumin 3.1 L Hepatitis A IgM Ab Nonreactive Hep Bs Antigen Nonreactive Hep B Core IgM Ab Nonreactive Hep C IgG Ab Nonreactive <Freddy Barrera - Last Filed: 01/26/18 10:37> Assessment and Plan - Plan Assessment: - PEG tube dislodged- Pt sent from [facility] for dislodged PEG tube. Pt aphasic and unable to provide information. According to the record a Damon catheter was placed at the facility prior to arrival after the PEG became dislodged. At time of my exam the Damon catheter was next to the patient in the bed, no longer through abdominal tract. Unsure when initial PEG was placed. Discussed with Dr. Puckett who talked to staff from [facility] facility who reported that pt has been having increased PO intake and is not using the PEG except one bolus feeding a day. Will do calorie count today and if adequate planning on DC, if inadequate will plan for PEG tomorrow via EGD CT abdomen and pelvis W IV contrast --> Moderate constipation with probable colonic ileus. Gastrostomy tube present. - Constipation with probable colonic ileus - Elevated LFTs of unclear etiology Discussed with radiologist Dr. Jacinto, no findings in CT to indicate elevation including biliary ductal dilatation. Plan: Calorie count today If inadequate EGD with PEG tomorrow If adequate Dr. Puckett planning to DC Bowel regimen Repeat LFTs Check Hepatitis profile Avoid hepatotoxins Further recommendations to follow Pt has been seen and examined by myself and Dr. Barrera and this note is written on his behalf <Courtney Hong - Last Filed: 01/25/18 09:59> - Attending Attestation Seen and examined, plan as above. Completed the entire provided meals. Thank you for the consult, please notify us if needed again. <Freddy Barrera - Last Filed: 01/26/18 10:37>
[2018-01-25] MEDS ORDERED: Bisacodyl 10 MG Supp RECTAL ONE (10:26)
[2018-01-25] MEDS ORDERED: Levothyroxine 50 MCG Tablet PO SCH (11:30)
[2018-01-25] MEDS ORDERED: Divalproex 125 MG Sprinkles Capsule PO SCH (11:30)
[2018-01-25 12:52] VITALS: RESP 18
[2018-01-25 14:22] LABS: Albumin 3.1 g/dL (3.4-5.0)
[2018-01-25 14:24] LABS: Total Protein 6.5 g/dL (6.4-8.2)
[2018-01-25 14:45] LABS: Hepatitits B Surface Antigen Nonreactive (Nonreactive)
[2018-01-25 15:11] LABS: Hepatitis A IgM Antibody Nonreactive (Nonreactive)
[2018-01-25 15:49] VITALS: BP 109/55; PULSE 107; TEMP 98.9; O2SAT 97
--- NOTE | 2018-01-25 16:08 | P.DIET ---
Nutritional Evaluation Type of nutrition evaluation: initial Nutrition consult regarding: Diet Evaluation (MDC) Assessment Assessment: Per RN, patient had eaten very well today. This is consistent with the reported intake from the [facility]. Agree with MD to not replace PEG as pt. is eating well. Recommendations: Agree with MD to not replace PEG as pt. is eating well.
== END 2018-01-26 07:46 ==
LOC: NEDA 22:20 → NEPE 22:20 → NEDA 01-25 04:53 → NEPGCP 01-25 05:03
PROVIDERS: ADMIT Hospitalist; ATTEND Hospitalist